=== PATIENT | male | born 2000 | race Asian ===

== ENCOUNTER 2019-02-08 08:44 | Emergency (ER) | payer BC ==
[~2019-02-08] VITALS: Ht 170.2 cm; Wt 83.9 kg
[2019-02-08 08:44] VITALS: BP_SYST 126
--- NOTE | 2019-02-08 08:44 | NUR ---
Patient to ER bed 6 to gown for evaluation. Side rails up. Report given to DAMIEN Maravilla.
--- NOTE | 2019-02-08 08:48 | NUR ---
Patient presented to ER with abdominal pain, arrived ALS. Patient stated abdominal pain 5/10 started upon awaking around 0800. Patient AOx4, skin pink, respirations equal bilat, denies N/V/D, Patient states pain is to left lower quadrant.
--- NOTE | 2019-02-08 08:50 | NUR ---
ER Dr. Peterson at bedside examining patient.
--- NOTE | 2019-02-08 09:15 | NUR ---
Radiology at bedside for portable x-ray
[2019-02-08 09:38] LABS: BASOPHILS # (AUTO) 0.1 K/uL (0.0-0.2); EOSINOPHILS # (AUTO) 0.1 K/uL (0.0-0.4); EOSINOPHILS % (AUTO) 0.9 % (0.0-4.0); HEMATOCRIT 42.3 % (36-54); HEMOGLOBIN 14.4 g/dL (14.0-18.0); LYMPHOCYTES # (AUTO) 2.8 K/uL (1.0-5.5); LYMPHOCYTES % (AUTO) 43.7 % (20.5-51.5); MEAN CORPUSCULAR HEMOGLOBIN 30 pg (27-31); MEAN CORPUSCULAR HGB CONC 34 % (32-36); MEAN CORPUSCULAR VOLUME 89 fL (79.0-98.0); MONOCYTES # (AUTO) 0.5 K/uL (0.0-1.0); MONOCYTES % (AUTO) 8.1 % (1.7-9.3); NEUTROPHILS % (AUTO) 46.3 % (40.0-70.0); PLATELET COUNT (AUTO) 307 K/uL (130-430); RED BLOOD CELL COUNT(AUTO) 4.78 MIL/uL (4.2-6.2); RED CELL DISTRIBUTION WIDTH 12.4 % (9.0-15.0); WHITE BLOOD COUNT (AUTO) 6.4 K/uL (4.5-11.0)
[2019-02-08 09:49] LABS: ALBUMIN 3.9 g/dL (3.4-4.8); CALCIUM 9.3 mg/dL (8.4-11.0); CREATININE 0.75 mg/dL (0.55-1.30); POTASSIUM 3.6 mmol/L (3.5-5.1); TOTAL BILIRUBIN 0.5 mg/dL (0.0-1.0)
[2019-02-08 10:07] LABS: BILIRUBIN,URINE NEGATIVE (NEGATIVE); BLOOD, URINE 3+ (NEGATIVE); CLARITY/URINE HAZY (CLEAR); COLOR,URINE YELLOW (YELLOW); GLUCOSE,URINE NEGATIVE (NEGATIVE); KETONES,URINE NEGATIVE (NEGATIVE); LEUKOCYTE ESTERASE ,URINE NEGATIVE (NEGATIVE); NITRITE, URINE NEGATIVE (NEGATIVE); PH,URINE 5.5 (5.0-8.0); PROTEIN URINE 1+ (NEGATIVE); UROBILINOGEN,URINE 0.2 (0.2-1.0)
[2019-02-08] MEDS ORDERED: KETOROLAC TROMETHAMINE 30 MG VIAL IVP ONE (10:15)
[2019-02-08 10:53] LABS: BACTERIA,URINE FEW /HPF (None Seen); RBC,URINE 20-50 /HPF (0-3); WBC,URINE 0-3 /HPF (0-3)
--- NOTE | 2019-02-08 11:05 | NUR ---
Pt to CT with radiolgy staff
--- NOTE | 2019-02-08 11:37 | NUR ---
Patient back from CT to ER bed 6
--- NOTE | 2019-02-08 11:38 | NUR ---
report given to Regan QUEZADA
--- NOTE | 2019-02-08 11:51 | NUR ---
Pt resting comfortably in bed with no sign of distress. Will continue to monitor.
--- NOTE | 2019-02-08 12:23 | NUR ---
Patient awake,alert sitting up in [facility]
--- NOTE | 2019-02-08 13:30 | NUR ---
Patient alert and awake, sitting up in [place].
[2019-02-08 14:20] VITALS: BP_SYST 107
--- NOTE | 2019-02-08 14:20 | NUR ---
Patient given written and verbal discharge instructions and verbalizes understanding. ER MD discussed with patient the results and treatment provided. Patient in stable condition. ID arm band removed. IV catheter removed intact and dressing applied, no active bleeding. Rx of Grace given. Patient educated on pain management and to follow up with PMD. Pain Scale 0/10 . Opportunity for questions provided and answered. Medication side effect fact sheet provided.
== END 2019-02-08 14:20 | disposition home or self-care (01) ==
LOC: SED 08:44
DX: R31.9 Hematuria, unspecified (principal); R10.32 Left lower quadrant pain
CPT/HCPCS: 36415; 74176; 74021; 80053; 81000; 83690; 85025; 96374; 99284; J1885